=== PATIENT | female | born 1950 | race Caucasian/White ===

== ENCOUNTER → 2018-04-25 | Day surgery (SDC) | payer MEDICARE ==
[~2018-04-25] MED LIST: CLIN300C8 PO; IV RINGERS,LACTATED 1000ML 1,000 ML IV SCH; LIDOCAINE 2% PF Vial for OR 5 ML VIAL. ONE; OMEP40CA5 PO; PROAIR HFA8.5 GM IH; PROPOFOL 40 ML IV ONE; TRAM50TA PO; TRIA1CAP PO
--- NOTE | 2018-04-25 11:17 | PDOC1 ---
HISTORY & PHYSICAL H&P Ebonie Lambert [id number] 1950 04/12/2018 03:30 PM 08/29 [employer] [facility], [facility] OUR PATIENTS COME FIRST [address] [place], [place] [id number] Ph. [phone] Patient: Ebonie Lambert Date of : 1950 Date: 04/12/2018 3:30 PM Visit Type: Office Visit This 68 year old female presents for H/o colorectal polyp. History of Present Illness: 1. H/o colorectal polyp No prior screening. Risk Factors: h/o colon polyp. Pertinent negatives include abdominal pain, change in bowel habits, change in stool caliber, constipation, decreased appetite, diarrhea, melena, nausea, rectal bleeding, vomiting, weight gain and weight loss. Additional information: No family history of colon cancer, No family history of Crohn's/colitis, No NSAID/ASA use and Last colonoscopy 3 yrs ago. INTAKE COMMENTS: Intake Comments: patient states she is here for A colonoscopy PROBLEM LIST: Problem Description Onset Date Chronic Clinical Status Notes Cellulitis, leg 05/30/2014 Leg ulcer 05/30/2014 PAST MEDICAL/SURGICAL HISTORY (Detailed) Disease/disorder Onset Date Management Date Comments Hypertension Family History (Detailed) Social History: (Detailed) The patient is right-handed. Preferred language is Monegasque. MARITAL STATUS/FAMILY/SOCIAL SUPPORT Currently . Tobacco use status: Never smoked tobacco. Smoking status: Never smoker. ALCOHOL There is no history of alcohol use. CAFFEINE The patient does not use caffeine. LIFESTYLE DIET 1800 calorie. HOME ENVIRONMENT/SAFETY Carbon monoxide detector at home. Uses seat belts. EXPERIENCE Patient has no experience. Medications (active prior to today) Medication Name Sig Description Start Date Stop Date Refilled Rx Elsewhere ProAir HFA 90 mcg/actuation aerosol inhaler inhale 2 puff by INHALATION route every 4 hours as needed 04/03/2018 04/03/2018 N omeprazole 40 mg capsule,delayed release take 1 capsule by oral route every day before a meal 04/03/2018 04/03/2018 N Dyazide 37.5 mg-25 mg capsule take 1 capsule by oral route every day 201704/03/2018 N tramadol 50 mg tablet take 1 tablet by oral route every 12 hours as needed 01/201804/03/2018 N Medication Reconciliation Medications reconciled today. Medication Reviewed Adherence Medication Name Sig Desc Elsewhere Status taking as directed ProAir HFA 90 mcg/actuation aerosol inhaler inhale 2 puff by INHALATION route every 4 hours as needed N Verified taking as directed omeprazole 40 mg capsule,delayed release take 1 capsule by oral route every day before a meal N Verified taking as directed Dyazide 37.5 mg-25 mg capsule take 1 capsule by oral route every day N Verified taking as directed tramadol 50 mg tablet take 1 tablet by oral route every 12 hours as needed N Verified Medications (Added, Continued or Stopped today) Start Date Medication Directions PRN Status PRN Reason Instruction Stop Date 04/03/2018 Dyazide 37.5 mg-25 mg capsule take 1 capsule by oral route every day N 04/03/2018 omeprazole 40 mg capsule,delayed release take 1 capsule by oral route every day before a meal N 04/03/2018 ProAir HFA 90 mcg/actuation aerosol inhaler inhale 2 puff by INHALATION route every 4 hours as needed N 04/03/2018 tramadol 50 mg tablet take 1 tablet by oral route every 12 hours as needed N Allergies: Ingredient Reaction (Severity) Medication Name Comment AMPICILLIN CODEINE rash rash DYCLONINE HCL LISINOPRIL MORPHINE SULFATE rash PENICILLINS ORDERS: Status Lab Order Time Frame Comments ordered CBC with Diff ordered CMP ordered HEMOGLOBIN A1C ordered LIPID PANEL ordered TSH ordered CBC with Diff ordered CMP ordered HEMOGLOBIN A1C ordered LIPID PANEL ordered TSH ordered CMP -today ordered CBC w/diff -today ordered Lipid Panel -today ordered TSH 3rd Generation -today ordered Hg A1C -today ordered follow-up visit with Ayaz Bello MD upon completion of work-up upon completion of work-up ordered follow-up visit with Blanca Herman APRN 1 Month 1 Month ordered Colonoscopy, flexible; diagnostic -today ordered follow-up visit with Ayaz Bello MD upon completion of work-up upon completion of work-up System Neg/Pos Details Constitutional Negative Chills, Fever, Malaise, Weight gain and Weight loss. ENMT Negative Sore throat. Eyes Negative Double vision. Respiratory Negative Dyspnea and Wheezing. Cardio Negative Chest pain and Irregular heartbeat/palpitations. GI Positive See HPI. GI Negative Abdominal pain, Change in bowel habits, Change in stool caliber, Constipation, Decreased appetite, Diarrhea, Melena, Nausea, See HPI, Rectal bleeding and Vomiting. Negative Dysuria and Hematuria. Endocrine Negative Cold intolerance and Heat intolerance. Psych Negative Anxiety. Integumentary Negative Hives and Rash. MS Negative Joint pain. Brandan/Lymph Negative Easy bleeding and Easy bruising. Allergic/Immuno Negative Food allergies. Vital Signs Time BP mm/Hg Pulse /min Resp /min Temp F Ht ft Ht in Ht cm Wt lb Wt kg BMI kg/ m2 BSA m2 O2 Sat% 3:23 PM 132/80 86 16 97.8 5.0 152.40 227.00 102.965 44.33 2.09 94 Measured By Time Measured by 3:23 PM Pinky Swygert PHYSICAL EXAM: Exam Findings Details Constitutional Normal Well developed. Eyes Normal Conjunctiva - Right: Normal, Left: Normal. Sclera - Right: Normal, Left: Normal. Nasopharynx Normal Lips/teeth/gums - Normal. Neck Exam Normal Inspection - Normal. Thyroid gland - Normal. Respiratory Normal Inspection - Normal. Auscultation - Normal. Cardiovascular Normal Regular rate and rhythm. No murmurs, gallops, or rubs. Abdomen Normal Inspection - Normal. Anterior palpation - No guarding. No abdominal tenderness. No hepatic enlargement. No spleen enlargement. No hernia. No Ascites. Skin Normal Inspection - Normal. Extremity Normal No edema. Psychiatric Normal Orientation - Oriented to time, place, person & situation. Appropriate mood and affect. Assessment/Plan # Detail Type Description 1. Assessment History of colon polyps (Z86.010). [place] [facility] [place] Following items have been discussed with the patient if applicable. _x__Patient was advised about the liquid diet carefully. ___Diabetic medication: Do not take following medication on the preparation day - ___Insulin: Reduce or eliminate your insulin as follows- ___Blood thinner: Do not take following blood thinner as follows- _x__Other medication: Continue all other medication on the day of preparation. ___BP medication: Take following BP meds on the day of the procedure at 5:30 AM. with just a sip of water-but do not drink lot of water because this will delay your procedure for anesthesia related issue.- Plan Orders Further diagnostic evaluations ordered today include(s) Colonoscopy , flexible; diagnostic to be performed today. She is to schedule a follow-up visit with Ayaz Bello MD upon completion of work-up. Active Patient Care Team Members Name Contact Agency Type Support Role Relationship Active Date Inactive Date Specialty Nikki Ortega MD Patient provider PCP Internal Med Provider: Ayaz Bello MD 04/12/2018 3:36 PM Teodoro Bauman MD, Family Practice; Theo Ellis MD Internal Medicine; Nikki Ortega MD, Internal Medicine; Ash Bello MD Internal Medicine; Ayaz Bello MD, Gastroenterology; Willem Briggs MD, Rheumatology, [facility] [place]NG[place]ZN ------ 04/25/18 Patient seen and examined. No change in H&P. AYAZ BELLO MD Apr 25, 2018 11:17
[2018-04-25 11:36] VITALS: BP 150/70
== END | disposition home or self-care (01) ==
LOC: SURG 10:15
PROVIDERS: ATTEND Internal Medicine Gastroenterology
DX: Z12.11 Encounter for screening for malignant neoplasm of colon (principal); K57.30 Diverticulosis of large intestine without perforation or abscess without bleeding; I10 Essential (primary) hypertension; Z79.899 Other long term (current) drug therapy; Z88.1 Allergy status to other antibiotic agents; Z86.010 Personal history of colon polyps; Z88.5 Allergy status to narcotic agent; Z88.8 Allergy status to other drugs, medicaments and biological substances; Z91.018 Allergy to other foods
CPT/HCPCS: G0105; J2001; J2704; 45378

== ENCOUNTER 2019-11-10 15:52 | Emergency (ER) | payer MEDICARE, MEDICAID ==
[~2019-11-10] VITALS: Ht 152.4 cm; Wt 97.0 kg
[~2019-11-10 15:52] MED LIST changes: +ALBU2.5V8 IH; -IV RINGERS,LACTATED 1000ML 1,000 ML IV SCH; -LIDOCAINE 2% PF Vial for OR 5 ML VIAL. ONE; +OMEP40CA45 PO; -OMEP40CA5 PO; -PROAIR HFA8.5 GM IH; -PROPOFOL 40 ML IV ONE
[2019-11-10] MEDS ORDERED: ONDANSETRON PF 4 MG/2 ML VIAL. IVP ONE (16:15)
[2019-11-10] MEDS ORDERED: IV NORMAL SALINE 1000ML BAG 1,000 ML IV ONE (16:15)
[2019-11-10] MEDS ORDERED: FAMOTIDINE 20 MG/2 ML VIAL IVP ONE (16:15)
--- NOTE | 2019-11-10 16:17 | PHYS DOC ---
Past Medical History Past Medical History: CVA, Diabetes-Type II, Hypertension, Stroke, Other Additional Past Medical Histor: "spot on lung", memory loss, loss of bladder control, balance issues Past Surgical History: No Surgical History Smoking Status: Never Smoker Alcohol Use: None Drug Use: None Adult General Chief Complaint Chief Complaint: NAUSEA/VOMITING/DIARRHA HPI HPI Patient is a 69 year old female with a history of diabetes type 2, hypertension, CVA, who presents to the ED today complaining of nausea, vomiting, diarrhea and generalized abdominal pain rated as mild and intermittent, symptoms began this morning. Patient denies any hematemesis or melena. Denies anything specifically exacerbating or relieving her symptoms. Review of Systems Review of Systems Constitutional: Denies fever or chills [] Eyes: Denies change in visual acuity, redness, or eye pain [] HENT: Denies nasal congestion or sore throat [] Respiratory: Denies cough or shortness of breath [] Cardiovascular: No additional information not addressed in HPI [] GI: Reports generalized abdominal pain with nausea vomiting and diarrhea : Denies dysuria or hematuria [] Musculoskeletal: Denies back pain or joint pain [] Integument: Denies rash or skin lesions [] Neurologic: Denies headache, focal weakness or sensory changes [] All other systems were reviewed and found to be within normal limits, except as documented in this note. Current Medications Current Medications Current Medications Medications (Trade) Dose Ordered Sig/Carmela Start Time Stop Time Status Last Admin Dose Admin Famotidine (Pepcid Vial) 20 mg 1X ONCE 11/10/19 16:15 11/10/19 16:16 DC 11/10/19 16:33 20 MG Iohexol (Omnipaque 300 Mg/ml) 60 ml 1X ONCE 11/10/19 17:15 11/10/19 17:16 DC 11/10/19 17:27 60 ML Ondansetron HCl (Zofran) 4 mg 1X ONCE 11/10/19 16:15 11/10/19 16:16 DC 11/10/19 16:33 4 MG Sodium Chloride 1,000 ml @ 1,000 mls/hr 1X ONCE 11/10/19 16:15 11/10/19 17:14 DC 11/10/19 16:15 1,000 MLS/HR Allergies Allergies Allergies Coded Allergies Type Severity Reaction Last Updated Verified Penicillins Allergy Intermediate rash 04/25/18 Yes amoxicillin Allergy Intermediate rash 04/25/18 Yes codeine Allergy Intermediate Hives 04/25/18 Yes lisinopril Allergy Intermediate 04/25/18 Yes Milk Containing Products Adverse Reaction Intermediate N/V 04/25/18 Yes morphine Adverse Reaction Intermediate Nausea and Vomiting 04/25/18 Yes Physical Exam Physical Exam Constitutional: Well developed, well nourished, no acute distress, non-toxic appearance. [] HENT: Normocephalic, atraumatic, bilateral external ears normal, oropharynx moist, no oral exudates, nose normal. [] Eyes: PERRLA, EOMI, conjunctiva normal, no discharge. [] Neck: Normal range of motion, no tenderness, supple, no stridor. [] Cardiovascular:Heart rate regular rhythm, no murmur [] Lungs & Thorax: Bilateral breath sounds clear to auscultation [] Abdomen: Bowel sounds normal, soft, diffuse tenderness throughout the abdomen, no masses, no pulsatile masses. [] Skin: Warm, dry, no erythema, no rash. [] Back: No tenderness, no CVA tenderness. [] Extremities: No tenderness, no cyanosis, no clubbing, ROM intact, no edema. [] Neurologic: Alert and oriented X 3, normal motor function, normal sensory function, no focal deficits noted. Essential head tremors noted. Psychologic: Affect normal, judgement normal, mood normal. [] Current Patient Data Vital Signs Vital Signs Date Time Temp Pulse Resp B/P (MAP) Pulse Ox O2 Delivery O2 Flow Rate FiO2 11/10/19 17:15 86 16 130/64 (86) 95 Room Air 11/10/19 15:58 98.2 98.2 Lab Values Laboratory Tests Test 11/10/19 16:15 White Blood Count 7.8 x10^3/uL (4.0-11.0) Red Blood Count 4.76 x10^6/uL (3.50-5.40) Hemoglobin 15.1 g/dL (12.0-15.5) Hematocrit 43.8 % (36.0-47.0) Mean Corpuscular Volume 92 fL (79-100) Mean Corpuscular Hemoglobin 32 pg (25-35) Mean Corpuscular Hemoglobin Concent 34 g/dL (31-37) Red Cell Distribution Width 12.8 % (11.5-14.5) Platelet Count 211 x10^3/uL (140-400) Neutrophils (%) (Auto) 91 % (31-73) H Lymphocytes (%) (Auto) 6 % (24-48) L Monocytes (%) (Auto) 2 % (0-9) Eosinophils (%) (Auto) 0 % (0-3) Basophils (%) (Auto) 0 % (0-3) Neutrophils # (Auto) 7.1 x10^3/uL (1.8-7.7) Lymphocytes # (Auto) 0.5 x10^3/uL (1.0-4.8) L Monocytes # (Auto) 0.2 x10^3/uL (0.0-1.1) Eosinophils # (Auto) 0.0 x10^3/uL (0.0-0.7) Basophils # (Auto) 0.0 x10^3/uL (0.0-0.2) Segmented Neutrophils % 85 % (35-66) H Band Neutrophils % 7 % (0-9) Lymphocytes % 5 % (24-48) L Monocytes % 3 % (0-10) Platelet Estimate Adequate (ADEQUATE) Urine Collection Type Unknown Urine Color Yellow Urine Clarity Clear Urine pH 7.5 (<5.0-8.0) Urine Specific [place] 1.020 (1.000-1.030) Urine Protein Negative mg/dL (NEG-TRACE) Urine Glucose (UA) Negative mg/dL (NEG) Urine Ketones (Stick) Negative mg/dL (NEG) Urine Blood Negative (NEG) Urine Nitrite Negative (NEG) Urine Bilirubin Negative (NEG) Urine Urobilinogen Dipstick 1.0 mg/dL (0.2 mg/dL) Urine Leukocyte Esterase Negative (NEG) Urine RBC 0 /HPF (0-2) Urine WBC 0 /HPF (0-4) Urine Squamous Epithelial Cells Mod /LPF Urine Bacteria 0 /HPF (0-FEW) Sodium Level 137 mmol/L (136-145) Potassium Level 4.0 mmol/L (3.5-5.1) Chloride Level 99 mmol/L (98-107) Carbon Dioxide Level 26 mmol/L (21-32) Anion Gap 12 (6-14) Blood Urea Nitrogen 22 mg/dL (7-20) H Creatinine 1.0 mg/dL (0.6-1.0) Estimated GFR (Cockcroft-Gault) 55.1 BUN/Creatinine Ratio 22 (6-20) H Glucose Level 184 mg/dL (70-99) H Calcium Level 8.9 mg/dL (8.5-10.1) Magnesium Level 1.6 mg/dL (1.8-2.4) L Total Bilirubin 1.5 mg/dL (0.2-1.0) H Aspartate Amino Transferase (AST) 20 U/L (15-37) Alanine Aminotransferase (ALT) 25 U/L (14-59) Alkaline Phosphatase 75 U/L (46-116) Total Protein 6.9 g/dL (6.4-8.2) Albumin 3.5 g/dL (3.4-5.0) Albumin/Globulin Ratio 1.0 (1.0-1.7) Lipase 126 U/L (73-393) Urine Opiates Screen Neg (NEG) Urine Methadone Screen Neg (NEG) Urine Barbiturates Neg (NEG) Urine Phencyclidine Screen Neg (NEG) Urine Amphetamine/Methamphetamine Neg (NEG) Urine Benzodiazepines Screen Neg (NEG) Urine Cocaine Screen Neg (NEG) Urine Cannabinoids Screen Neg (NEG) Ethyl Alcohol Level < 10 mg/dL (0-10) Urine Ethyl Alcohol Neg (NEG) Laboratory Tests 11/10/19 16:15 Laboratory Tests 11/10/19 16:15 EKG EKG [] Radiology/Procedures Radiology/Procedures []PROCEDURE: CT ABD PELV W/ IV CONTRST ONLY CT SCAN OF THE ABDOMEN AND PELVIS WITH IV CONTRAST. History: Vomiting and diarrhea Comparison: January 24, 2018. Procedure: Contiguous axial images of the abdomen and pelvis were performed after the administration of 60 cc of Omni 300 IV contrast. Oral contrast: No. Findings: There is 2.7 cm duodenal diverticulum seen previously. The uterus appears within normal limits. The ovaries are not seen and could be small. There is a fat-containing umbilical hernia. The appendix is normal. Liver: Unremarkable Spleen: Unremarkable Pancreas: Atrophic Adrenal Glands: Unremarkable Kidneys: Unremarkable There is no mass or lymphadenopathy. There is no free air. There is no free fluid. The urinary bladder appears normal. Impression: No acute findings. PQRS Compliance Statement: One or more of the following individualized dose reduction techniques were utilized for this examination: 1. Automated exposure control 2. Adjustment of the mA and/or kV according to patient size 3. Use of iterative reconstruction technique Electronically signed by: Markus Samano III, MD (11/10/2019 5:45 PM) [id number] DICTATED and SIGNED BY: MARKUS SAMANO III, MD DATE: 11/10/19 1745 Course & Med Decision Making Course & Med Decision Making Pertinent Labs and Imaging studies reviewed. (See chart for details) This is a 69-year-old female patient presenting to the ED today with generalized abdominal pain with nausea vomiting and diarrhea that began this morning. Labs are negative, UA is negative, CT of the abdomen and pelvic is negative. Patient was given IV fluids, Zofran and Pepcid, feeling better. Discharge to home with zofran and dicyclomine. Follow-up with PCP in 1 to 2 weeks Alma Rosa Disclaimer Dragon Disclaimer This electronic medical record was generated, in whole or in part, using a voice recognition dictation system. Departure Departure Impression: Primary Impression: Vomiting and diarrhea Disposition: 01 HOME, SELF-CARE Condition: STABLE Referrals: JUAN PABLO KNOWLES MD (PCP) follow up in 1-2 weeks Patient Instructions: Diarrhea, Nausea and Vomiting Scripts Ondansetron (ONDANSETRON ODT) 4 Mg Tab.rapdis 1 TAB PO PRN Q6-8HRS, #16 TAB Prov: CRISPIN BRIONES APRN 11/10/19 CRISPIN BRIONES APRN Nov 10, 2019 16:17
[2019-11-10 16:23] LABS: BILIRUBIN,URINE NEGATIVE (NEG); CLARITY,URINE CLEAR; COLOR,URINE YELLOW; NITRITE,URINE NEGATIVE (NEG); PH,URINE 7.5 (<5.0-8.0); PROTEIN,URINE NEGATIVE (NEG-TRACE)
[2019-11-10 16:24] LABS: BASO % 0 % (0-3); EOS % 0 % (0-3); HEMATOCRIT 43.8 % (36.0-47.0); HEMOGLOBIN 15.1 g/dL (12.0-15.5); LYMPH # 0.5 x10^3/uL (1.0-4.8); LYMPH % 6 % (24-48); MEAN CORPUSCULAR HEMOGLOBIN 32 pg (25-35); MEAN CORPUSCULAR HGB CONC 34 g/dL (31-37); MEAN CORPUSCULAR VOLUME 92 fL (79-100); MONO # 0.2 x10^3/uL (0.0-1.1); MONO % 2 % (0-9); NEUT # 7.1 x10^3/uL (1.8-7.7); NEUT % 91 % (31-73); PLATELET COUNT 211 x10^3/uL (140-400); RED BLOOD COUNT 4.76 x10^6/uL (3.50-5.40); RED CELL DISTRIBUTION WIDTH 12.8 % (11.5-14.5); WHITE BLOOD COUNT 7.8 x10^3/uL (4.0-11.0)
[2019-11-10 16:30] LABS: AMPHETAMINE/METHAMPHETAMINE NEG (NEG); BARBITURATES NEG (NEG); BENZODIAZEPINES NEG (NEG); CANNABINOIDS NEG (NEG); COCAINE NEG (NEG); METHADONE NEG (NEG); OPIATES NEG (NEG); PHENCYCLIDINE NEG (NEG)
[2019-11-10 16:31] LABS: CALCIUM 8.9 mg/dL (8.5-10.1); GFR 55.1
[2019-11-10 16:33] LABS: BACTERIA,URINE 0 /HPF (0-FEW); RBC,URINE 0 /HPF (0-2); SQUAMOUS EPITHELIAL CELL,UR MOD /LPF; WBC,URINE 0 /HPF (0-4)
[2019-11-10 16:38] LABS: ALBUMIN 3.5 g/dL (3.4-5.0); MAGNESIUM 1.6 mg/dL (1.8-2.4); TOTAL BILIRUBIN 1.5 mg/dL (0.2-1.0); TOTAL PROTEIN 6.9 g/dL (6.4-8.2)
[2019-11-10 16:54] LABS: % BANDS 7 % (0-9); % LYMPHS 5 % (24-48); % MONOS 3 % (0-10); % SEGS 85 % (35-66); PLT ESTIMATE ADEQUATE (ADEQUATE)
[2019-11-10 17:15] VITALS: BP 130/64
[2019-11-10] MEDS ORDERED: IOHEXOL 300 MG/ML 100ML VIAL. IV ONE (17:15)
--- NOTE | 2019-11-10 17:48 | RAD ---
CT SCAN OF THE ABDOMEN AND PELVIS WITH IV CONTRAST. History: Vomiting and diarrhea Comparison: January 24, 2018. Procedure: Contiguous axial images of the abdomen and pelvis were performed after the administration of 60 cc of Omni 300 IV contrast. Oral contrast: No. Findings: There is 2.7 cm duodenal diverticulum seen previously. The uterus appears within normal limits. The ovaries are not seen and could be small. There is a fat-containing umbilical hernia. The appendix is normal. Liver: Unremarkable Spleen: Unremarkable Pancreas: Atrophic Adrenal Glands: Unremarkable Kidneys: Unremarkable There is no mass or lymphadenopathy. There is no free air. There is no free fluid. The urinary bladder appears normal. Impression: No acute findings. PQRS Compliance Statement: One or more of the following individualized dose reduction techniques were utilized for this examination: 1. Automated exposure control 2. Adjustment of the mA and/or kV according to patient size 3. Use of iterative reconstruction technique Electronically signed by: Lio Samano III, MD (11/10/2019 5:45 PM) [id number]
[2019-11-10] MEDS ORDERED: ONDA4TAB12 PO (17:56)
== END 2019-11-10 18:35 | disposition home or self-care (01) ==
LOC: ER 15:52
DX: R11.2 Nausea with vomiting, unspecified (principal); R19.7 Diarrhea, unspecified; R10.84 Generalized abdominal pain; E11.9 Type 2 diabetes mellitus without complications; I10 Essential (primary) hypertension; Z86.73 Personal history of transient ischemic attack (TIA), and cerebral infarction without residual deficits; Z88.0 Allergy status to penicillin; Z88.1 Allergy status to other antibiotic agents; Z88.5 Allergy status to narcotic agent; Z88.8 Allergy status to other drugs, medicaments and biological substances; Z91.011 Allergy to milk products
CPT/HCPCS: 36415; 74177; 80053; 80307; 81001; 83690; 83735; 85007; 85025; 96361; 96374; 96375; 99285; G0480; J2405; J3490; J7030; Q9967